=== PATIENT | male | born 1995 | race Caucasian/White ===

== ENCOUNTER 2018-05-05 06:39 | Emergency (ER) | payer MEDICAID ==
[~2018-05-05] VITALS: Ht 175.3 cm; Wt 52.3 kg
[2018-05-05] MEDS ORDERED: LORazepam 2 MG/ML, 1ML ONE (06:48)
[2018-05-05 06:54] VITALS: BP 170/106
[2018-05-05] MEDS ORDERED: LORazepam 2 MG/ML, 1ML IM ONE (07:00)
== END 2018-05-05 09:06 | disposition left against medical advice (07) ==
LOC: ED 08:54
DX: F15.90 Other stimulant use, unspecified, uncomplicated (principal); G93.40 Encephalopathy, unspecified
CPT/HCPCS: 96372; 99283; J2060

== ENCOUNTER 2020-08-31 21:41 | Emergency (ER) | payer MEDICAID ==
[~2020-08-31] VITALS: Ht 177.8 cm; Wt 65.0 kg
[2020-08-31] MEDS ORDERED: HALOPERIDOL 5 MG/ML ONE (21:55)
[2020-08-31] MEDS ORDERED: LORazepam 2 MG/ML, 1ML ONE ×2 (21:56→22:37)
[2020-08-31] MEDS ORDERED: DIPHENHYDRAMINE 50 MG/ML, 1ML ONE (21:56)
[2020-08-31] MEDS ORDERED: HALOPERIDOL 5 MG/ML IM ONE (22:00)
[2020-08-31] MEDS ORDERED: PLEASE ENTER HEIGHT AND WEIGHT MC SCH (22:00)
[2020-08-31] MEDS ORDERED: LORazepam 2 MG/ML, 1ML IVPush ONE ×2 (22:00→23:00)
[2020-08-31] MEDS ORDERED: SODIUM CHLORIDE 0.9% 1,000ML IVBOLUS ONE ×2 (22:00→23:00)
[2020-08-31] MEDS ORDERED: DIPHENHYDRAMINE 50 MG/ML, 1ML IVPush ONE (22:00)
--- NOTE | 2020-08-31 22:18 | NUR ---
PT BIB [facility] FROM [facility] AND MAY HAVE INGESTED SOME [place] DRUG. HR 170'S, PT HAS PRESSURED, TANGENTILE SPEECH. OTHER VSS. PT IS REDIRECTABLE AND WILL FOLLOW SOME COMMANDS. PT MEDICATED AND FLUIDS RUNNING. LAB AT BEDSIDE. CALL LIGHT IN REACH
[2020-08-31 22:24] LABS: BASOPHILS % (AUTO) 1 % (0-1); EOSINOPHILS % (AUTO) 0 % (1-7); LYMPHOCYTES % (AUTO) 4 % (22-44); MEAN CORPUSCULAR HEMOGLOBIN 29.7 pg (27.5-34.5); MEAN PLATELET VOLUME 7.5 fL (7.4-10.4); MONOCYTES % (AUTO) 6 % (2-9); NEUTROPHILS % (AUTO) 89 % (42-75); PLATELET COUNT 230 x10^3/uL (130-400); RED BLOOD COUNT 5.14 x10^6/uL (4.38-5.82); RED CELL DISTRIBUTION WIDTH 12.9 % (9.4-14.8)
[2020-08-31 22:33] LABS: ANION GAP 9 mmol/L (5-15); CALCIUM 8.3 mg/dL (8.5-10.1); CHLORIDE 106 mmol/L (98-107)
[2020-08-31 22:37] LABS: ALANINE AMINOTRANSFERASE 17 U/L (12-78); ALKALINE PHOSPHATASE 69 U/L (45-117); BILIRUBIN,TOTAL 0.4 mg/dL (0.2-1.0); CREATININE 1.34 mg/dL (0.7-1.3); SALICYLATE LEVEL 2.7 mg/dL (2.8-20.0); TOTAL PROTEIN 6.8 g/dL (6.4-8.2)
--- NOTE | 2020-08-31 22:44 | NUR ---
PT STILL ANXIOUS AND TACHYCARDIC. UPDATED AND ORDERS RECIEVED. 2ND L OF FLUIDS RUNNING. PT REMEDICATED WITH ATIVAN. WILL CONTINUE TO MONITOR.
[2020-08-31 22:51] LABS: MD SCAN
--- NOTE | 2020-08-31 23:44 | NUR ---
PULSE OX REPLACED. HR IMPROVING AND PT CALMER. UPDATED. CALL LIGHT IN REACH
--- NOTE | 2020-09-01 00:04 | NUR ---
PT REMOVED CARDIAC LEADS. PT ONCE AGAIN REMOVED PULSE OX AND CARDIAC LEADS. LEADS AND PULSE OX REPLACED. PT REMINDED OF THE NEED FOR MONITORING. PT GIVEN BLANKETS AND APPEARS TO BE SLEEPING. CALL LIGHT IN REACH
[2020-09-01 00:12] VITALS: BP 136/76
--- NOTE | 2020-09-01 00:39 | NUR ---
PT NOW AAOX 4. PIV REMOVED AND MD UPDATED. MD TO SEE PT.
--- NOTE | 2020-09-01 01:10 | NUR ---
PT TO BE DISCHARGED PER MD. PT UPDATED AND AGREEABLE WITH THAT
--- NOTE | 2020-09-01 01:22 | NUR ---
Patient given discharge instructions and they have confirmed that they understand the instructions. Patient ambulatory with steady gait.
== END 2020-09-01 01:24 | disposition home or self-care (01) ==
LOC: ED 22:11
DX: F19.159 Other psychoactive substance abuse with psychoactive substance-induced psychotic disorder, unspecified (principal); F22 Delusional disorders; R00.0 Tachycardia, unspecified; F41.1 Generalized anxiety disorder
CPT/HCPCS: 36415; 80053; 80307; 85025; 93005; 96361; 96372; 96374; 96375; 96376; 99285; J1200; J1630; J2060; J7030